=== PATIENT | male | born 1965 | race American Indian/Alaskan Native ===

== ENCOUNTER 2017-09-24 07:16 | Inpatient (IN) | payer MEDICARE ==
[2017-09-24] MEDS ORDERED: TYLENOL PO ONE (07:41)
[2017-09-24] MEDS ORDERED: TYLENOL ONE (07:41)
[2017-09-24 07:55] LABS: Hematocrit 35.6 % (35.5-45.6); Hemoglobin 11.5 gm/dl (11.8-15.2); Mean Corpuscular HGB Conc 32 % (32-34); Mean Corpuscular Hemoglobin 27 pg (28-32); Mean Corpuscular Volume 83 fl (84-94); Platelet Count 168 K/mm3 (140-440); Red Blood Count 4.31 M/mm3 (3.65-5.03); Red Cell Distribution Width 16.6 % (13.2-15.2)
[2017-09-24 08:12] LABS: BUN/Creatinine Ratio 17; Blood Urea Nitrogen 15 mg/dL (9-20); Calcium 8.9 mg/dL (8.4-10.2); Hemolysis Index 2
[2017-09-24 09:02] LABS: Band Neutrophils # (Manual) 1.7 K/mm3; Basophils % (Manual) 0 % (0.0-1.8); Eosinophils % (Manual) 0 % (0.0-4.3); Total Cells Counted 100
[2017-09-24 09:03] LABS: Anisocytosis 1+; Macrocytosis 1+; Ovalocytes Few; Platelet Estimate Consistent w Auto; Poikilocytosis Few; Tear Drop Cells Few
[2017-09-24] MEDS ORDERED: NACL 0.9% 1000 ML 1,000 ML IV ONE (09:11)
[2017-09-24] MEDS ORDERED: DUONEB *Not for PRN Use IH ONE (09:11)
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
[2017-09-24] MEDS ORDERED: LEVAQUIN 750MG/150ML 750 MG/150 ML BAG IV ONE (10:09)
--- NOTE | 2017-09-24 10:19 | XRay Report ---
CHEST 2 VIEWS INDICATION: Cough, fever. COMPARISON: 06/16/2009 FINDINGS: PA and lateral chest radiographs demonstrate poorer inspiration with mild exaggerated cardiomediastinal silhouette, though grossly unchanged. Subtle 4.5 cm right suprahilar hazy opacity/air bronchograms not entirely excluded. Grossly clear remainder lungs. No pleural effusions. Right hemidiaphragm now approximately 3.5 cm higher than the left. Stable bones/sternotomy wires. CONCLUSION: Poorer inspiration with subtle right suprahilar pneumonia not excluded. Please correlate. Thank you for the opportunity to participate in this patient's care.
[2017-09-24 11:44] LABS: Bilirubin,Urine NEG (Negative); Blood,Urine NEG (Negative); Color,Urine Yellow (Yellow); Protein,Urine <15 mg/dL mg/dL (Negative); RBC,Urine < 1.0 /HPF (0.0-6.0); Urobilinogen,Urine < 2.0 mg/dL (<2.0); WBC,Urine < 1.0 /HPF (0.0-6.0)
[2017-09-24] MEDS ORDERED: SODIUM CHLORIDE FLUSH SYRINGE 10 ML IV PRN (12:57)
[2017-09-24] MEDS ORDERED: ZOFRAN IV PRN (12:57)
[2017-09-24] MEDS ORDERED: D50W (25GM) Syringe IV PRN (12:57)
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
[2017-09-24] MEDS: TYLENOL PO PRN (15:03)
[2017-09-24] MEDS: PROzac PO SCH (15:07)
[2017-09-24] MEDS: LOPRESSOR PO SCH ×2 (15:08→21:49)
[2017-09-24] MEDS: HALFPRIN EC PO SCH (15:08)
[2017-09-24] MEDS: NACL 0.9% 1000 ML 1,000 ML IV SCH ×2 (16:13→22:40)
[2017-09-24] MEDS: GLUCOPHAGE PO SCH (17:08)
[2017-09-24] MEDS: HumaLOG SUB-Q SCH ×2 (17:08→21:56)
--- NOTE | 2017-09-24 18:25 | XRay Report ---
FINAL REPORT PROCEDURE: XR CHEST ROUTINE 2V TECHNIQUE: PA and lateral chest radiographs were obtained. CPT 82980 HISTORY: fever COMPARISON: No prior studies are available for comparison. FINDINGS: Patchy alveolar density is seen posteriorly in the right upper lobe suggesting pneumonia given the clinical presentation. Lungs otherwise are clear. No effusions are seen. Sternotomy wires are visualized. Heart size upper normal. Pulmonary vasculature is not distended. On the lateral view there appears to be mild loss in height of the T9 vertebral body although suboptimally seen. Correlation with physical exam recommended. IMPRESSION: Right upper lobe infiltrate, pneumonia suspected. Prior thoracotomy. Possible mild loss height T9 vertebral body. Correlation with physical exam suggested to exclude an acute injury..
[2017-09-24] MEDS: TAMIFLU PO SCH (21:49)
[2017-09-24] MEDS: SODIUM CHLORIDE FLUSH SYRINGE 10 ML IV SCH (21:53)
[2017-09-25] MEDS: NACL 0.9% 1000 ML 1,000 ML IV SCH ×3 (06:04→23:52)
[2017-09-25 06:19] LABS: Basophils % (Auto) 0.2 % (0.0-1.8); Eosinophils % (Auto) 0.3 % (0.0-4.3); Hematocrit 31.7 % (35.5-45.6); Hemoglobin 10.3 gm/dl (11.8-15.2); Lymphocytes # (Auto) 1.7 K/mm3 (1.2-5.4); Lymphocytes % (Auto) 12.7 % (13.4-35.0); Mean Corpuscular HGB Conc 33 % (32-34); Mean Corpuscular Hemoglobin 27 pg (28-32); Mean Corpuscular Volume 82 fl (84-94); Monocytes # (Auto) 1.7 K/mm3 (0.0-0.8); Monocytes % (Auto) 12.9 % (0.0-7.3); Platelet Count 149 K/mm3 (140-440); Red Blood Count 3.85 M/mm3 (3.65-5.03)
[2017-09-25 06:27] LABS: BUN/Creatinine Ratio 19; Blood Urea Nitrogen 13 mg/dL (9-20); Calcium 8.1 mg/dL (8.4-10.2); Hemolysis Index 0
[2017-09-25] MEDS: HumaLOG SUB-Q SCH ×4 (07:36→22:14)
[2017-09-25] MEDS: GLUCOPHAGE PO SCH ×2 (07:42→16:48)
[2017-09-25] MEDS ORDERED: NON-FORMULARY (Fluoxetine Hcl [Fluoxetine] 20 MG) PO SCH (10:00)
[2017-09-25] MEDS: SODIUM CHLORIDE FLUSH SYRINGE 10 ML IV SCH ×2 (10:52→21:33)
[2017-09-25] MEDS: HALFPRIN EC PO SCH (10:52)
[2017-09-25] MEDS: LEVAQUIN 750MG/150ML 750 MG/150 ML BAG IV SCH (10:52)
[2017-09-25] MEDS: PROzac PO SCH (10:53)
[2017-09-25] MEDS: TAMIFLU PO SCH ×2 (10:54→21:15)
[2017-09-25] MEDS: TYLENOL PO PRN ×2 (10:54→23:54)
[2017-09-25] MEDS: LOPRESSOR PO SCH ×2 (10:55→21:15)
[2017-09-25] MEDS ORDERED: PNEUMOVAX 23 IM ONE (12:00)
--- NOTE | 2017-09-25 14:37 | Progress Note ---
Assessment and Plan Assessment and plan: 52M admitted with productive cough and sob, fever and chills cxr; image reviewed; Right upper lobe infiltrate, pneumonia suspected. Problems pna sepsis -suspected hyponatremia lactic acidosis htn dm hld Schizoaffective disorder etoh dependence - is currently in program at [facility]; not at risk for withdrawal as has not had etoh in weeks plan iv abx -tamiflu -flu nasal swab sent -IVF -resume home meds -add SSI History Interval history: fevers are less frequent cough is improved no sob, no cp, no vomiting, no agitation, no tremors Hospitalist Physical - Physical exam Narrative exam: General appearance: Present: mild distress, other (toxic appearance) - EENT Eyes: Present: PERRL ENT: hearing intact, clear oral mucosa - Neck Neck: Present: supple, normal ROM - Respiratory Respiratory effort: normal Respiratory: right: rales - Cardiovascular Heart Sounds: Present: S1 & S2. Absent: rub, click - Extremities Extremities: pulses symmetrical, No edema Peripheral Pulses: within normal limits - Abdominal General gastrointestinal: Present: soft, non-tender, non-distended, normal bowel sounds Male genitourinary: Present: normal - Integumentary Integumentary: Present: clear, warm, dry - Musculoskeletal Musculoskeletal: gait normal, strength equal bilaterally - Psychiatric Psychiatric: appropriate mood/affect, intact judgment & insight - Neurologic Neurologic: CNII-XII intact, moves all extremities - Constitutional Vitals: Temp Pulse Resp BP Pulse Ox 98.6 F 98 H 20 137/78 93 09/25/17 07:47 09/25/17 10:55 09/25/17 07:47 09/25/17 10:55 09/25/17 07:47 Results - Labs CBC & Chem 7: 09/25/17 05:55 09/25/17 05:55 Labs: Laboratory Last Values WBC 13.2 K/mm3 (4.5-11.0) H 09/25/17 05:55 RBC 3.85 M/mm3 (3.65-5.03) 09/25/17 05:55 Hgb 10.3 gm/dl (11.8-15.2) L 09/25/17 05:55 Hct 31.7 % (35.5-45.6) L 09/25/17 05:55 MCV 82 fl (84-94) L 09/25/17 05:55 MCH 27 pg (28-32) L 09/25/17 05:55 MCHC 33 % (32-34) 09/25/17 05:55 RDW 16.0 % (13.2-15.2) H 09/25/17 05:55 Plt Count 149 K/mm3 (140-440) 09/25/17 05:55 Lymph % (Auto) 12.7 % (13.4-35.0) L 09/25/17 05:55 [place] % (Auto) 12.9 % (0.0-7.3) H 09/25/17 05:55 Eos % (Auto) 0.3 % (0.0-4.3) 09/25/17 05:55 Baso % (Auto) 0.2 % (0.0-1.8) 09/25/17 05:55 Lymph # 1.7 K/mm3 (1.2-5.4) 09/25/17 05:55 [place] # 1.7 K/mm3 (0.0-0.8) H 09/25/17 05:55 Eos # 0.0 K/mm3 (0.0-0.4) 09/25/17 05:55 Baso # 0.0 K/mm3 (0.0-0.1) 09/25/17 05:55 Add Manual Diff Complete 09/24/17 07:47 Total Counted 100 09/24/17 07:47 Seg Neutrophils % 73.9 % (40.0-70.0) H 09/25/17 05:55 Seg Neuts % (Manual) 63.0 % (40.0-70.0) 09/24/17 07:47 Band Neutrophils % 11.0 % 09/24/17 07:47 Lymphocytes % (Manual) 12.0 % (13.4-35.0) L 09/24/17 07:47 Reactive Lymphs % (Man) 0 % 09/24/17 07:47 Monocytes % (Manual) 12.0 % (0.0-7.3) H 09/24/17 07:47 Eosinophils % (Manual) 0 % (0.0-4.3) 09/24/17 07:47 Basophils % (Manual) 0 % (0.0-1.8) 09/24/17 07:47 Metamyelocytes % 2.0 % 09/24/17 07:47 Myelocytes % 0 % 09/24/17 07:47 Promyelocytes % 0 % 09/24/17 07:47 Blast Cells % 0 % 09/24/17 07:47 Nucleated RBC % Not Reportable 09/24/17 07:47 Seg Neutrophils # 9.8 K/mm3 (1.8-7.7) H 09/25/17 05:55 Seg Neutrophils # Man 9.6 K/mm3 (1.8-7.7) H 09/24/17 07:47 Band Neutrophils # 1.7 K/mm3 09/24/17 07:47 Lymphocytes # (Manual) 1.8 K/mm3 (1.2-5.4) 09/24/17 07:47 Abs React Lymphs (Man) 0.0 K/mm3 09/24/17 07:47 Monocytes # (Manual) 1.8 K/mm3 (0.0-0.8) H 09/24/17 07:47 Eosinophils # (Manual) 0.0 K/mm3 (0.0-0.4) 09/24/17 07:47 Basophils # (Manual) 0.0 K/mm3 (0.0-0.1) 09/24/17 07:47 Metamyelocytes # 0.3 K/mm3 09/24/17 07:47 Myelocytes # 0.0 K/mm3 09/24/17 07:47 Promyelocytes # 0.0 K/mm3 09/24/17 07:47 Blast Cells # 0.0 K/mm3 09/24/17 07:47 WBC Morphology Not Reportable 09/24/17 07:47 Hypersegmented Neuts Not Reportable 09/24/17 07:47 Hyposegmented Neuts Not Reportable 09/24/17 07:47 Hypogranular Neuts Not Reportable 09/24/17 07:47 Smudge Cells Not Reportable 09/24/17 07:47 Toxic Granulation Not Reportable 09/24/17 07:47 Toxic Vacuolation Not Reportable 09/24/17 07:47 Dohle Bodies Not Reportable 09/24/17 07:47 Pelger-Huet Anomaly Not Reportable 09/24/17 07:47 Elisha Rods Not Reportable 09/24/17 07:47 Platelet Estimate Consistent w auto 09/24/17 07:47 Clumped Platelets Not Reportable 09/24/17 07:47 Plt Clumps, EDTA Not Reportable 09/24/17 07:47 Large Platelets Not Reportable 09/24/17 07:47 Giant Platelets Not Reportable 09/24/17 07:47 Platelet Satelliting Not Reportable 09/24/17 07:47 Plt Morphology Comment Not Reportable 09/24/17 07:47 RBC Morphology Not Reportable 09/24/17 07:47 Dimorphic RBCs Not Reportable 09/24/17 07:47 Polychromasia Not Reportable 09/24/17 07:47 Hypochromasia Not Reportable 09/24/17 07:47 Poikilocytosis Few 09/24/17 07:47 Anisocytosis 1+ 09/24/17 07:47 Microcytosis Not Reportable 09/24/17 07:47 Macrocytosis 1+ 09/24/17 07:47 Spherocytes Not Reportable 09/24/17 07:47 Pappenheimer Bodies Not Reportable 09/24/17 07:47 Sickle Cells Not Reportable 09/24/17 07:47 Target Cells Not Reportable 09/24/17 07:47 Tear Drop Cells Few 09/24/17 07:47 Ovalocytes Few 09/24/17 07:47 Helmet Cells Not Reportable 09/24/17 07:47 [place] Bodies Not Reportable 09/24/17 07:47 [place] Rings Not Reportable 09/24/17 07:47 Slo Cells Not Reportable 09/24/17 07:47 Bite Cells Not Reportable 09/24/17 07:47 Crenated Cell Not Reportable 09/24/17 07:47 Elliptocytes Not Reportable 09/24/17 07:47 Acanthocytes (Spur) Not Reportable 09/24/17 07:47 Rouleaux Not Reportable 09/24/17 07:47 Hemoglobin C Crystals Not Reportable 09/24/17 07:47 Schistocytes Not Reportable 09/24/17 07:47 Malaria parasites Not Reportable 09/24/17 07:47 [place] Bodies Not Reportable 09/24/17 07:47 Hem Pathologist Commnt No 09/24/17 07:47 Sodium 136 mmol/L (137-145) L 09/25/17 05:55 Potassium 4.0 mmol/L (3.6-5.0) 09/25/17 05:55 Chloride 99.3 mmol/L (98-107) 09/25/17 05:55 Carbon Dioxide 25 mmol/L (22-30) 09/25/17 05:55 Anion Gap 16 mmol/L 09/25/17 05:55 BUN 13 mg/dL (9-20) 09/25/17 05:55 Creatinine 0.7 mg/dL (0.8-1.5) L 09/25/17 05:55 Estimated GFR > 60 ml/min 09/25/17 05:55 BUN/Creatinine Ratio 19 % 09/25/17 05:55 Glucose 109 mg/dL (75-100) H 09/25/17 05:55 POC Glucose 122 (70-105) H 09/25/17 11:51 Lactic Acid 2.30 mmol/L (0.7-2.0) H* 09/24/17 10:16 Calcium 8.1 mg/dL (8.4-10.2) L 09/25/17 05:55 Urine Color Yellow (Yellow) 09/24/17 11:03 Urine Turbidity Clear (Clear) 09/24/17 11:03 Urine pH 6.0 (5.0-7.0) 09/24/17 11:03 Ur Specific [place] 1.004 (1.003-1.030) 09/24/17 11:03 Urine Protein <15 mg/dl mg/dL (Negative) 09/24/17 11:03 Urine Glucose (UA) Neg mg/dL (Negative) 09/24/17 11:03 Urine Ketones Neg mg/dL (Negative) 09/24/17 11:03 Urine Blood Neg (Negative) 09/24/17 11:03 Urine Nitrite Neg (Negative) 09/24/17 11:03 Urine Bilirubin Neg (Negative) 09/24/17 11:03 Urine Urobilinogen < 2.0 mg/dL (<2.0) 09/24/17 11:03 Ur Leukocyte Esterase Neg (Negative) 09/24/17 11:03 Urine WBC (Auto) < 1.0 /HPF (0.0-6.0) 09/24/17 11:03 Urine RBC (Auto) < 1.0 /HPF (0.0-6.0) 09/24/17 11:03 U Epithel Cells (Auto) < 1.0 /HPF (0-13.0) 09/24/17 11:03
[2017-09-26] MEDS: HumaLOG SUB-Q SCH ×3 (07:39→18:31)
[2017-09-26] MEDS: HALFPRIN EC PO SCH (10:06)
[2017-09-26] MEDS: TAMIFLU PO SCH (10:06)
[2017-09-26] MEDS: TYLENOL PO PRN (10:06)
[2017-09-26] MEDS: GLUCOPHAGE PO SCH ×2 (10:06→18:31)
[2017-09-26] MEDS: LOPRESSOR PO SCH (10:07)
[2017-09-26] MEDS: PROzac PO SCH (10:07)
[2017-09-26] MEDS: LEVAQUIN 750MG/150ML 750 MG/150 ML BAG IV SCH (10:07)
[2017-09-26] MEDS: NACL 0.9% 1000 ML 1,000 ML IV SCH (10:08)
[2017-09-26] MEDS: SODIUM CHLORIDE FLUSH SYRINGE 10 ML IV SCH (10:09)
[2017-09-26 16:24] VITALS: BP 145/83
--- NOTE | 2017-09-26 17:37 | Discharge Summary ---
Providers - Providers Date of Admission: 09/24/17 10:40 Attending physician: JENNIFER PRADO MD Primary care physician: CHAD TORREZ MD Hospitalization Condition: Stable Hospital course: 52M admitted with productive cough and sob, fever and chills. he was found to have pna and presumed influenza. He was rx with abx and tamiflu, he defervesced , and improved. And he is being dc on abx and tamiflu course. He is being dc back to [facility] inpatient rx facility from which he presented. Diagnosis pna, likely due to gram positive sepsis Influenza hyponatremia lactic acidosis htn dm hld Schizoaffective disorder etoh dependence Disposition: DC/TX-70 ANOTHER TYPE [facility] Time spent for discharge: 33 minutes Core Measure Documentation - Palliative Care Palliative Care/ Comfort Measures: Not Applicable - Core Measures Any of the following diagnoses?: none Exam - Constitutional Vitals: Temp Pulse Resp BP Pulse Ox 98.9 F 85 20 145/83 96 09/26/17 16:19 09/26/17 16:19 09/26/17 16:19 09/26/17 16:19 09/26/17 16:19 General appearance: Present: no acute distress, well-nourished - EENT Eyes: Present: PERRL ENT: hearing intact, clear oral mucosa - Neck Neck: Present: supple, normal ROM - Respiratory Respiratory effort: normal Respiratory: bilateral: CTA - Cardiovascular Heart Sounds: Present: S1 & S2. Absent: rub, click - Extremities Extremities: pulses symmetrical, No edema Peripheral Pulses: within normal limits - Abdominal General gastrointestinal: Present: soft, non-tender, non-distended, normal bowel sounds Male genitourinary: Present: normal - Integumentary Integumentary: Present: clear, warm, dry - Musculoskeletal Musculoskeletal: gait normal, strength equal bilaterally - Psychiatric Psychiatric: appropriate mood/affect, intact judgment & insight - Neurologic Neurologic: CNII-XII intact, moves all extremities Plan Follow up with: PRIMARY CARE, [Primary Care Provider] - 3-5 Days Prescriptions: QUEtiapine [SEROquel] 800 mg PO QHS #[address] [Depakote Dr] 1,000 mg PO HS #60 tablet Levofloxacin [Levaquin] 750 mg PO QDAY #4 tablet metFORMIN [Glucophage] 500 mg PO BID #60 tablet Metoprolol [Lopressor TAB] 25 mg PO BID #60 tablet Oseltamivir [Tamiflu] 75 mg PO BID #6 capsule
== END 2017-09-26 18:45 | disposition home or self-care (01) | DRG 871 ==
LOC: ED 07:16 → 3A 10:40
PROVIDERS: ADMIT Internal Medicine; ATTEND Internal Medicine
PROC: 3E0234Z Introduction of Serum, Toxoid and Vaccine into Muscle, Percutaneous Approach (ICD-10-PCS; principal; 2017-09-25)
DX: A41.9 Sepsis, unspecified organism (principal); J18.9 Pneumonia, unspecified organism; J11.08 Influenza due to unidentified influenza virus with specified pneumonia; E87.1 Hypo-osmolality and hyponatremia; I10 Essential (primary) hypertension; E11.9 Type 2 diabetes mellitus without complications; E78.5 Hyperlipidemia, unspecified; F25.9 Schizoaffective disorder, unspecified; F10.20 Alcohol dependence, uncomplicated; Z82.49 Family history of ischemic heart disease and other diseases of the circulatory system; Z83.3 Family history of diabetes mellitus; Z79.82 Long term (current) use of aspirin; Z79.899 Other long term (current) drug therapy; Z23 Encounter for immunization
CPT/HCPCS: 36415; 71046; 80048; 81001; 82140; 82962; 85007; 85025; 87040; 87400; 90732; 96365; 96366; A9270-GY; J1956; J7030

== ENCOUNTER 2018-10-19 15:39 | Emergency (ER) | payer MEDICARE ==
[2018-10-19 15:58] VITALS: BP 122/78
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
--- NOTE | 2018-10-19 16:57 | Vascular Lab Report ---
PROCEDURE: VL VENOUS DUPLEX LE LT TECHNIQUE: Duplex Doppler ultrasound examination of the left leg venous system HISTORY: pain COMPARISONS: None FINDINGS: Normal compressibility, vascular patency, and augmentation are present diffusely throughout the visua lized portion of the deep veins. No abnormal intraluminal echoes are visualized to suggest deep vein thrombus. Lack of visualized flow in the superficial greater saphenous vein at the level of the calf is noted. This may reflect superficial thrombosis and/or thrombophlebitis. IMPRESSION: No sonographic evidence of left leg DVT Absent flow in a short segment of the medial calf region greater saphenous vein may reflect superfici al thrombosis and/or thrombophlebitis This document is electronically signed by Loco Henry MD., Oct 19 2018 04:56:02 PM ET
== END 2018-10-19 18:08 | disposition home or self-care (01) ==
LOC: ED 15:39
DX: I80.9 Phlebitis and thrombophlebitis of unspecified site (principal); I10 Essential (primary) hypertension; E11.9 Type 2 diabetes mellitus without complications; F17.200 Nicotine dependence, unspecified, uncomplicated; F14.10 Cocaine abuse, uncomplicated

== ENCOUNTER 2018-11-05 10:23 | Emergency (ER) | payer MEDICARE ==
[2018-11-05] MEDS ORDERED: ASPIRIN PO ONE (10:39)
--- NOTE | 2018-11-05 11:08 | XRay Report ---
PROCEDURE: XR CHEST 1V AP TECHNIQUE: Chest, one view HISTORY: Chest Pain COMPARISON: 09/24/2017 FINDINGS: Patient is status post median sternotomy. The heart size is normal. There is no pulmonary vascular congestion seen. Mediastinal contours are unchanged. Lungs are clear. There is no pleural effusion seen. There is no pneumothorax seen. IMPRESSION: No acute abnormality identified. This document is electronically signed by Guillermina Mcrae MD., November 05 2018 12:05:55 PM ET
[2018-11-05 11:23] LABS: Basophils % (Auto) 0.6 % (0.0-1.8); Eosinophils % (Auto) 0.3 % (0.0-4.3); Hematocrit 39.4 % (35.5-45.6); Hemoglobin 12.6 gm/dl (11.8-15.2); Lymphocytes % (Auto) 16.8 % (13.4-35.0); Mean Corpuscular HGB Conc 32 % (32-34); Mean Corpuscular Volume 86 fl (84-94); Monocytes # (Auto) 0.7 K/mm3 (0.0-0.8); Monocytes % (Auto) 11.2 % (0.0-7.3); Platelet Count 251 K/mm3 (140-440); Red Blood Count 4.57 M/mm3 (3.65-5.03); Red Cell Distribution Width 16.5 % (13.2-15.2)
[2018-11-05] MEDS ORDERED: ZOFRAN ONE (11:25)
[2018-11-05 11:33] LABS: Bilirubin,Urine NEG (Negative); Blood,Urine NEG (Negative); Color,Urine Amber (Yellow); Hyaline Casts,Urine 2 /LPF; Mucus,Urine 3+ /HPF; Urobilinogen,Urine < 2.0 mg/dL (<2.0)
[2018-11-05 11:36] LABS: Alanine Aminotransferase 11 units/L (7-56); Albumin 4.5 g/dL (3.9-5); BUN/Creatinine Ratio 20; Blood Urea Nitrogen 14 mg/dL (9-20); Calcium 9.6 mg/dL (8.4-10.2); Hemolysis Index 4
[2018-11-05] MEDS ORDERED: ZOFRAN IV ONE (11:44)
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
[2018-11-05] MEDS ORDERED: MORPHINE IV ONE (12:32)
[2018-11-05 13:18] VITALS: BP 142/63
== END 2018-11-05 14:21 | disposition home or self-care (01) ==
LOC: ED 10:23
DX: R10.13 Epigastric pain (principal); R11.0 Nausea; I10 Essential (primary) hypertension; E11.9 Type 2 diabetes mellitus without complications
CPT/HCPCS: 36415; 71045; 80053; 81001; 84484; 85025; 87086; 93005; 93010; 96374; 96375; 99284; J2270; J2405

== ENCOUNTER 2020-02-14 12:58 | Outpatient (CLI) | payer MEDICARE | END 2020-02-14 12:59 | disposition home or self-care (01) | LOC: LAB 12:58 | DX: F31.60 Bipolar disorder, current episode mixed, unspecified (principal); F31.64 Bipolar disorder, current episode mixed, severe, with psychotic features | CPT/HCPCS: 36415; 86592 ==

== ENCOUNTER 2020-02-19 14:13 | Emergency (ER) | payer MEDICARE ==
--- NOTE | 2020-02-19 14:27 | Emergency Department Report ---
Blank Doc - Documentation Documentation: 54-year-old male that presents to the ED for medical clearance for [place]. This initial assessment/diagnostic orders/clinical plan/treatment(s) is/are subject to change based on patient's health status, clinical progression and re- assessment by fellow clinical providers in the ED. Further treatment and workup at subsequent clinical providers discretion. Patient/guardians urged not to elope from the ED as their condition may be serious if not clinically assessed and managed. Initial orders include: 1- Patient sent to [facility] for further evaluation and treatment 2- labs
[2020-02-19 14:30] VITALS: BP 111/66
[2020-02-19 14:52] LABS: Basophils # (Auto) 0.1 K/mm3 (0.0-0.1); Basophils % (Auto) 0.8 % (0.0-1.8); Eosinophils # (Auto) 0.1 K/mm3 (0.0-0.4); Eosinophils % (Auto) 1.8 % (0.0-4.3); Hematocrit 34.3 % (35.5-45.6); Lymphocytes # (Auto) 1.6 K/mm3 (1.2-5.4); Lymphocytes % (Auto) 23.3 % (13.4-35.0); Mean Corpuscular HGB Conc 32 % (32-34); Mean Corpuscular Volume 87 fl (84-94); Monocytes # (Auto) 0.7 K/mm3 (0.0-0.8); Monocytes % (Auto) 9.5 % (0.0-7.3); Platelet Count 192 K/mm3 (140-440); Red Blood Count 3.96 M/mm3 (3.65-5.03); Red Cell Distribution Width 15.2 % (13.2-15.2)
[2020-02-19 15:02] LABS: BUN/Creatinine Ratio 19; Blood Urea Nitrogen 17 mg/dL (9-20); Calcium 8.9 mg/dL (8.4-10.2); Hemolysis Index 12
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
[2020-02-19 17:01] LABS: Amphetamine Screen,Urine PRESUMPTIVE NEGATIVE; Benzodiazepines Screen,Urine PRESUMPTIVE NEGATIVE; Bilirubin,Urine NEG (Negative); Blood,Urine NEG (Negative); Cannabinoid Screen,Urine PRESUMPTIVE NEGATIVE; Cocaine Screen,Urine PRESUMPTIVE NEGATIVE; Color,Urine Yellow (Yellow); Methadone Screen,Urine PRESUMPTIVE NEGATIVE; Mucus,Urine 3+ /HPF; Opiate Screen,Urine PRESUMPTIVE NEGATIVE; Protein,Urine <15 mg/dL mg/dL (Negative)
== END 2020-02-19 19:03 | disposition home or self-care (01) ==
LOC: ED 14:13
DX: Z01.818 Encounter for other preprocedural examination (principal); I10 Essential (primary) hypertension; E11.9 Type 2 diabetes mellitus without complications; Z79.899 Other long term (current) drug therapy
CPT/HCPCS: 36415; 80048; 80307; 80320; 81001; 85025; 99283; G0480